=== PATIENT | female | born 1965 | race Caucasian/White ===

== ENCOUNTER 2024-02-23 14:42 | Inpatient (IN) | payer OTHER ==
[~2024-02-23] VITALS: Ht 167.6 cm; Wt 72.0 kg
--- NOTE | 2024-02-23 14:46 | ECG ---
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
[2024-02-23 15:07] LABS: Basophils # (auto) 0 10 ^3/uL (0-0.2); Basophils % (auto) 0.4 % (0.0-2.0); Eosinophils # (auto) 0.1 10 ^3/uL (0-0.8); Eosinophils % (auto) 0.8 % (0.0-7.0); Hematocrit 42.9 % (36.0-46.0); Hemoglobin 14.5 g/dL (12.2-16.2); Lymphocytes # (auto) 1.4 10 ^3/uL (0.4-5.4); Lymphocytes % (auto) 18.9 % (10.0-50.0); Mean Corpuscular Hemoglobin 29.6 pg (28.0-32.0); Mean Corpuscular Hgb Conc. 33.9 g/dL (32.0-36.0); Mean Corpuscular Volume 87.2 fL (80.0-100.0); Monocytes # (auto) 0.7 10 ^3/uL (0-1.3); Monocytes % (auto) 9.7 % (0.0-12.0); Neutrophils % (auto) 70.2 % (37.0-80.0); Nucleated Red Blood Cells % 0.1 %; Platelet Count (auto) 165 10^3/uL (140-450); Red Blood Cells 4.92 10^6/uL (4.0-5.20); Red Cell Distribution Width 13.5 % (11.8-14.3); White Blood Cell 7.2 10^3/uL (4.4-10.8)
--- NOTE | 2024-02-23 15:25 | ED.PDOC ---
History of Present Illness HPI Comments 58F presents to the ER w/ no prior Hx associated to the c/c of CP which started yesterday. Pt stated that she had SOB, associated w/ left sided CP which radiates laterally on the rib. Pt states "Unable to get a whole breathe". PMHx of Cancer. Denies chills, fever, N/V/D, or other associated symptoms, modifiers, or recent injuries at this time. Chief Complaint: Chest Pain Time Seen by MD: 15:20 Primary Care Provider: RACHEL Reviewed Notes: Nurses Notes, Medications, Allergies Allergies: Coded Allergies: Codeine (Verified Allergy, Severe, 02/23/24) Penicillins (Verified Allergy, Severe, 02/23/24) Information Source: Patient Mode of Arrival: Ambulatory Severity: Moderate Timing: Hours Duration: Since onset, Hours Prehospital treatment: None Past Medical History PAST MEDICAL HISTORY: Cancer Surgical History: Denies all surgeries RACE BOARD ATTENDANT History: No Pertinent RACE BOARD ATTENDANT History Family History Family History: Reviewed,noncontributory to illness, Unknown Social History Smoker: Non-Smoker Alcohol: Denies ETOH Use Drugs: Denies Drug Use Lives In: Home Constitutional: denies: chills, diaphoresis, fatigue, fever, malaise, sweats, weakness, others EENTM: denies: blurred vision, double vision, ear bleeding, ear discharge, ear drainage, ear pain, ear ringing, eye pain, eye redness, hearing loss, mouth pain, mouth swelling, nasal discharge, nose bleeding, nose congestion, nose pain, photophobia, tearing, throat pain, throat swelling, voice changes, others Respiratory: reports: shortness of breath; denies: cough, hemoptysis, orthopnea, SOB at rest, SOB with excertion, stridor, wheezing, others Cardiovascular: reports: chest pain; denies: dizzy spells, diaphoresis, Dyspnea on exertion, edema, irregular heart beat, left arm pain, lightheadedness, palpitations, PND, syncope, others Gastrointestinal: denies: abdomen distended, abdominal pain, blood streaked bowels, constipated, diarrhea, dysphagia, difficulty swallowing, hematemesis, melena, nausea, poor appetite, poor fluid intake, rectal bleeding, rectal pain, vomiting, others Genitourinary: denies: abnormal vagina bleeding, burning, dyspareunia, dysuria, flank pain, frequency, hematuria, incontinence, pain, , vagina discharge, urgency, others Neurological: denies: dizziness, fainting, headache, left sided numbness, left sided weakness, numbness, paresthesia, pre-existing deficit, right sided numbness, right sided weakness, seizure, speech problems, tingling, tremors, weakness, others Musculoskeletal: denies: back pain, gout, joint pain, joint swelling, muscle pain, muscle stiffness, neck pain, others Integumetry: denies: bruises, change in color, change in hair/nails, dryness, laceration, lesions, lumps, rash, wounds, others Allergic/Immunocompromised: denies: Difficulty Healing, Frequent Infections, Hi ves, Itching, others Hematologic/Lymphatic: denies: anemia, blood clots, easy bleeding, easy bruising, swollen glands, others Endocrine: denies: excessive hunger, excessive sweating, excessive thirst, excessive urination, flushing, intolerance to cold, intolerance to heat, unexplained weight gain, unexplained weight loss, others Psychiatric: denies: anxiety, bipolar disorder, depression, hopeless, panic disorder, schizophrenia, sleepless, suicidal, others All Other Systems: Reviewed and Negative Physical Exam General Appearance: Moderate Distress, Normal HEENT: Normal ENT Inspection, Pharynx Normal, TMs Normal Neck: Full Range of Motion, Non-Tender, Normal, Normal Inspection Respiratory: Chest Non-Tender, No Accessory Muscle Use, No Respiratory Distress, Other (Coarse breath sounds) Cardiovascular: No Edema, No JVD, No Murmur, No Gallop, Normal Peripheral Pulses, Regular Rate/Rhythm Breast Exam: Deferred Gastrointestinal: No Organomegaly, Non Tender, No Pulsatile Mass, Normal Bowel Sounds, Soft Genitalia: Deferred Pelvic: Deferred Rectal: Deferred Extremities: No calf tenderness, Normal capillary refill, Normal inspection, Normal range of motion, Non-tender, No pedal edema Musculoskeletal : Apperance: Normal Neurologic: Alert, manager quantitative II-XII nml as Tested, No Motor Deficits, Normal Affect, Normal Mood, No Sensory Deficits Cerebellar Function: Normal Reflexes: Normal Skin: Dry, Normal Color, Warm Peripheral Pulses: 3+ Radial (R), 3+ Radial (L) Lymphatic: No Adenopathy Was a procedure done? Was a procedure done?: No Differential Dx Considerations may include: Pneumonia Electrolyte imbalance X-Ray, Labs, Meds, VS Vital Signs Date Time Temp Pulse Resp B/P (MAP) Pulse Ox O2 Delivery O2 Flow Rate FiO2 02/23/24 14:45 99 02/23/24 14:43 98.9 103 16 145/94 (111) 97 Lab Test 02/23/24 14:53 Range/Units White Blood Count 7.2 4.4-10.8 10^3/uL Red Blood Count 4.92 4.0-5.20 10^6/uL Hemoglobin 14.5 12.2-16.2 g/dL Hematocrit 42.9 36.0-46.0 % Mean Corpuscular Volume 87.2 80.0-100.0 fL Mean Corpuscular Hemoglobin 29.6 28.0-32.0 pg Mean Corpuscular Hemoglobin Concent 33.9 32.0-36.0 g/dL Red Cell Distribution Width 13.5 11.8-14.3 % Platelet Count 165 140-450 10^3/uL Mean Platelet Volume 8.7 6.9-10.8 fL Neutrophils (%) (Auto) 70.2 37.0-80.0 % Lymphocytes (%) (Auto) 18.9 10.0-50.0 % Monocytes (%) (Auto) 9.7 0.0-12.0 % Eosinophils (%) (Auto) 0.8 0.0-7.0 % Basophils (%) (Auto) 0.4 0.0-2.0 % Neutrophils # (Auto) 5.0 1.6-8.6 10 ^3/uL Lymphocytes # (Auto) 1.4 0.4-5.4 10 ^3/uL Monocytes # (Auto) 0.7 0-1.3 10 ^3/uL Eosinophils # (Auto) 0.1 0-0.8 10 ^3/uL Basophils # (Auto) 0 0-0.2 10 ^3/uL Nucleated Red Blood Cells 0.1 % Troponin I High Sensitivity < 3 L </=34 ng/L Patient alert. Complaining of shortness a breath. Vitals stable. Answering all questions. Ambulating. History of Carreno sarcoma. WBC within normal limits. Hemoglobin within normal limits. Tachycardia. Blood pressure slightly elevated. Cardiac marker within normal limits. Continues to have shortness a breath. Complaining of chest pain upon deep inspiration. Echocardiogram. Possibly will need CT chest. Explained to the patient. Continue cardiac monitoring. Time of 1ST Reevaluation: 15:50 Reevaluation 1ST: Unchanged Patient Education/Counseling: Diagnosis, Treatment, Prognosis Family Education/Counseling: No Family Present Departure 1 Departure Time of Disposition: 15:50 Impression: Primary Impression: Acute respiratory distress Additional Impressions: Chest pain of unknown etiology Pleurisy Disposition: ADMITTED INPATIENT Admit to: Med Surg Condition: Guarded Critical Care Note Critical Care Time?: No Stability Stability form required: No Heart Score Heart Score: Heart Score Response (Comments) Value History Slightly Suspicious 0 EKG Normal 0 Age 45-64 1 Risk Factors 1 or 2 risk factors 1 Troponin Normal limit 0 Total 2 I personally scribed for SAMANTHA DOWD MD ([email or web address]) on 02/23/24 at 15:25. Electronically submitted by Edmund Barlow ([email or web address]). SAMANTHA DOWD MD Feb 23, 2024 15:25
[2024-02-23] MEDS ORDERED: ASPirin 325 MG TAB PO ONE (16:00)
[2024-02-23] MEDS ORDERED: methylPREDNISolone SOD SUCC 125 MG/2 ML VL IV ONE (16:00)
[2024-02-23 16:13] LABS: Chloride 105 mmol/L (98-107); Potassium 4.1 mmol/L (3.5-5.1); Sodium 137 mmol/L (136-145)
[2024-02-23 16:14] LABS: Anion Gap 9 (5-15); Carbon Dioxide 23 mmol/L (20-31)
--- NOTE | 2024-02-23 16:16 | DVH ---
CHEST RADIOGRAPH Indication: sob Technique: Single frontal view of the chest was obtained COMPARISON: None FINDINGS: Lines and Tubes: None Lungs: Clear Pleura: No effusion. No pneumothorax. Cardiomediastinal contours: Unremarkable Bones: Unremarkable IMPRESSION: 1. No acute disease.
[2024-02-23 16:19] LABS: BUN/Creatinine Ratio 18.1 (10.0-20.0); Blood Urea Nitrogen 15 mg/dL (9-23)
[2024-02-23 16:21] LABS: Glucose 110 mg/dL (74-106)
--- NOTE | 2024-02-23 17:25 | DVHHP2 ---
History of Present Illness Reason for Visit: Chest pain History of Present Illness 58-year-old with a past medical history of cancer no other stated past medical history comes into the ED today with complaints of shortness of breath and chest pain patient states that she is unable to get Ahold breath feeling like she can not catch her breath properly and that shortness of breath is associated with pain in her chest patient was evaluated in the ED and recommended by the ED physician for further evaluation management and inpatient care Heme/Onc: Cancer Review of Systems Constitutional: Yes: Weakness; No: Fever, Chills, Sweats, Malaise, Other Eyes: No: Pain, Vision change, Conjunctivae inflammation, Eyelid inflammation, Other, Redness ENT: No: Ear pain, Ear discharge, Nose pain, Nose discharge, Nose congestion, Mouth pain, Mouth swelling, Throat pain, Throat swelling, Other Respiratory: Cough, Shortness of breath; No: Dry, SOB with excertion, Wheezing, Hemoptysis, Pleuritic Pain, Sputum, Wheezing, Other Cardiovascular: Chest Pain, Palpitations; No: Orthopnea, Paroxysmal Noc. Dyspnea, Edema, Lt Headedness, Other Gastrointestinal: No: Nausea, Vomiting, Abdominal Pain, Diarrhea, Constipation, Melena, Hematochezia, Other Genitourinary: No Dysuria, No Frequency, No Incontinence, No Hematuria, No Retention, No Other Musculoskeletal: No: other, neck pain, shoulder pain, arm pain, back pain, hand pain, leg pain, foot pain Skin: No: Rash, Lesions, Jaundice, Bruising, Other Neurological: No: Weakness, Numbness, Incoordination, Change in speech, Confusion, Seizures, Other Allergies: Coded Allergies: Codeine (Verified Allergy, Severe, 02/23/24) Penicillins (Verified Allergy, Severe, 02/23/24) Exam Vital Signs Vital Signs Date Time Temp Pulse Resp B/P (MAP) Pulse Ox O2 Delivery O2 Flow Rate FiO2 02/23/24 14:45 99 02/23/24 14:43 98.9 16 145/94 (111) 97 General Appearance: Alert, Oriented X3, Cooperative, mild distress HEENT: Atraumatic, PERRLA Respiratory: Clear to auscultation (Mild wheezing), Normal air movement Cardiovascular: Regular rate, Normal S1, Normal S2 Abdominal: Normal bowel sounds, Soft, No tenderness Extremities: No clubbing, No cyanosis, No edema Skin: No rashes, No breakdown Neuro: Normal gait, Normal speech Psych/Mental Status: Mood NL Labs/Xrays Labs Test 02/23/24 16:11 02/23/24 15:53 02/23/24 14:53 Range/Units Troponin I High Sensitivity 3 L </=34 ng/L Sodium Level 137 136-145 mmol/L Potassium Level 4.1 3.5-5.1 mmol/L Chloride Level 105 98-107 mmol/L Carbon Dioxide Level 23 20-31 mmol/L Anion Gap 9 5-15 Blood Urea Nitrogen 15 9-23 mg/dL Creatinine 0.83 0.550-1.02 mg/dL Glomerular Filtration Rate Calc 81 >90 mL/min BUN/Creatinine Ratio 18.1 10.0-20.0 Serum Glucose 110 H 74-106 mg/dL Calcium Level 10.0 8.7-10.4 mg/dL White Blood Count 7.2 4.4-10.8 10^3/uL Red Blood Count 4.92 4.0-5.20 10^6/uL Hemoglobin 14.5 12.2-16.2 g/dL Hematocrit 42.9 36.0-46.0 % Mean Corpuscular Volume 87.2 80.0-100.0 fL Mean Corpuscular Hemoglobin 29.6 28.0-32.0 pg Mean Corpuscular Hemoglobin Concent 33.9 32.0-36.0 g/dL Red Cell Distribution Width 13.5 11.8-14.3 % Platelet Count 165 140-450 10^3/uL Mean Platelet Volume 8.7 6.9-10.8 fL Neutrophils (%) (Auto) 70.2 37.0-80.0 % Lymphocytes (%) (Auto) 18.9 10.0-50.0 % Monocytes (%) (Auto) 9.7 0.0-12.0 % Eosinophils (%) (Auto) 0.8 0.0-7.0 % Basophils (%) (Auto) 0.4 0.0-2.0 % Neutrophils # (Auto) 5.0 1.6-8.6 10 ^3/uL Lymphocytes # (Auto) 1.4 0.4-5.4 10 ^3/uL Monocytes # (Auto) 0.7 0-1.3 10 ^3/uL Eosinophils # (Auto) 0.1 0-0.8 10 ^3/uL Basophils # (Auto) 0 0-0.2 10 ^3/uL Nucleated Red Blood Cells 0.1 % Assessment/Plan Assessment/Plan Admit to [facility] Patient has a history of Carreno sarcoma Suspected chest pain is secondary to pleurisy Chest pain protocol to rule out ACS CT of the chest Patient with hypoxic respiratory distress IV antibiotics for coverage of pneumonia To be discontinued once proven no infection is present P.r.n. breathing treatments IV steroids Patient with mildly elevated glucose we will cover with sliding scale as steroids will be given Plan discussed with: Patient My Orders Orders - MARCOS BLACKWOOD MD Procedure Category Date Status Time Glucose Blood PHA 02/23/24 Logged (Accu-Chek Comfort 20:00 Insulin R (Human) PHA 02/23/24 Logged (Insulin R) 20:00 Dextrose 50% Syringe PHA 02/23/24 Logged 17:30 Admit ADMIT 02/23/24 Transmitted 17:16 Code Status CODE 02/23/24 Transmitted 17:16 Cardiac DIET 02/23/24 Transmitted Diet-2gna,Lofat,Lochol Dinner Sodium Chloride 0.9% PHA 02/23/24 Logged 17:30 Aspirin Tablet PHA 02/24/24 Logged 10:00 Atorvastatin (Lipitor) PHA 02/23/24 Logged 22:00 Carvedilol Tablet PHA 02/23/24 Transmitted (Coreg Tablet) 22:00 Lisinopril Tablet PHA 02/24/24 Transmitted (Zestril Tablet) 10:00 Morphine Sulfate PHA 02/23/24 Transmitted Injection 17:30 Acetaminophen Tablet PHA 02/23/24 Transmitted (Tylenol Tablet) 17:30 Zolpidem Tartrate PHA 02/23/24 Transmitted (Ambien) 17:30 Lorazepam Tablet PHA 02/23/24 Transmitted (Ativan Tablet) 17:30 Docusate Sodium PHA 02/24/24 Transmitted Capsule (Colace 10:00 Complete Blood Count LAB 02/24/24 Verified 04:00 Basic Metabolic Panel LAB 02/24/24 Verified 04:00 Nitroglycerin PHA 02/23/24 Transmitted Sublingual (Ntrostat 17:30 Ondansetron Hcl PHA 02/23/24 Transmitted (Zofran) 17:30 Electrocardigram EKG 02/23/24 Logged 17:16 Troponin-I Hs LAB 02/23/24 Transmitted 17:16 Cardiac DUNIA 02/23/24 In Process Rehabilitation - Outpa Nitroglycerin PHA 02/23/24 Transmitted Sublingual (Ntrostat 17:30 Morphine Sulfate PHA 02/23/24 Transmitted Injection 17:30 Stat Ekg For Chest [facility] 02/23/24 In Process Pain 17:16 Notify Md Of Changes [facility] 02/23/24 In Process From Base 17:16 Production Posting Clerk For [facility] 02/23/24 In Process 24 Hours 17:16 Emergency Dysrhythmia [facility] 02/23/24 In Process Protocol 17:16 Rhythm Strips Once [facility] 02/23/24 In Process Every Shift 17:16 Oxygen By Nasal RT 02/23/24 Transmitted Cannula 17:16 Problem List: (1) Acute respiratory distress (2) Pleurisy (3) Chest pain of unknown etiology Date of Service: Feb 23, 2024 Billing Provider: MARCOS BLACKWOOD MD Common Visit Codes: [id number] INP/OBS CARE (HIGH) MARCOS BLACKWOOD MD Feb 23, 2024 17:25
[2024-02-23] MEDS ORDERED: IPRATROPIUM BROM 0.5 MG/2.5ML INH SOL NEB PRN (17:30)
[2024-02-23] MEDS ORDERED: ONDANSETRON HCL 4 MG/2 ML VIAL IV PRN (17:30)
[2024-02-23] MEDS ORDERED: AZITHROMYCIN 250 MG TAB PO SCH (17:30)
[2024-02-23] MEDS ORDERED: NITROGLYCERIN 0.4 MG SL TAB SL PRN ×2 (17:30)
[2024-02-23] MEDS ORDERED: LORazepam 0.5 MG TAB PO PRN (17:30)
[2024-02-23] MEDS ORDERED: ALBUTEROL SULF 2.5 MG/0.5ML(0.5%) NEB SOLN NEB PRN (17:30)
[2024-02-23] MEDS ORDERED: DEXTROSE (50%) 50ML SYRG IV PRN (17:30)
[2024-02-23] MEDS ORDERED: ACETAMINOPHEN 325 MG TAB PO PRN (17:30)
[2024-02-23] MEDS ORDERED: MORPHINE SULFATE INJ 2 MG/ml SYRG IV PRN (17:30)
[2024-02-23] MEDS ORDERED: MORPHINE SULFATE 4 MG/ML SYR/VIAL IV PRN (17:30)
[2024-02-23] MEDS ORDERED: ZOLPIDEM TARTRATE 5 MG TAB PO PRN (17:30)
[2024-02-23] MEDS ORDERED: cefTRIAXone 1GM/50ML D5W 50 ML IV SCH (17:30)
[2024-02-23] MEDS: SODIUM CHLORIDE 0.9% 1,000 ML IV SCH (17:30)
[2024-02-23] MEDS ORDERED: InsuLIN REG 1unit/0.01ml Soln (100units/ml) SC SCH (20:00)
[2024-02-23] MEDS ORDERED: ACCU-CHEK COMFORT CURVE STRIP VI SCH (20:00)
[2024-02-23 20:33] VITALS: BP 159/97; PULSE 82; RESP 16; TEMP 98.2; O2SAT 97
[2024-02-23] MEDS ORDERED: methylPREDNISolone SOD SUCC 40 MG/ML VL IV SCH (22:00)
[2024-02-23] MEDS ORDERED: CARVEDILOL 3.125 MG TAB PO SCH (22:00)
[2024-02-23] MEDS ORDERED: ATORVASTATIN 20 MG TAB PO SCH (22:00)
[2024-02-24] MEDS ORDERED: DOCUSATE SOD 100 MG CAP PO SCH (10:00)
[2024-02-24] MEDS ORDERED: LISINOPRIL 5 MG TAB PO SCH (10:00)
[2024-02-24] MEDS ORDERED: ASPirin 81 mg TAB PO SCH (10:00)
== END 2024-02-23 20:46 | disposition left against medical advice (07) | DRG 195 ==
LOC: ER 14:42 → OVERFLOW 17:16
PROVIDERS: ADMIT Hospitalist; ATTEND Hospitalist
DX: J18.9 Pneumonia, unspecified organism (principal); R06.03 Acute respiratory distress; R09.1 Pleurisy; Z53.29 Procedure and treatment not carried out because of patient's decision for other reasons; Z88.0 Allergy status to penicillin; Z88.5 Allergy status to narcotic agent; Z85.830 Personal history of malignant neoplasm of bone
CPT/HCPCS: 36415; 71045; 80048; 84484; 85025; 93005; G0378